=== PATIENT | male | born 1960 | race Two or more races ===

== ENCOUNTER 2022-09-30 06:57 | Day surgery (SDC) | payer OTHER ==
[2022-09-30] MEDS ORDERED: LIDOCAINE HCL/MPF 1% 30 ML VIAL IJ ONE (11:37)
[2022-09-30] MEDS ORDERED: BUPIVACAINE 0.5 % PF 150 MG/30 ML VIAL ONE (11:37)
== END 2022-09-30 12:20 | disposition home or self-care (01) ==
LOC: DS 06:57
PROVIDERS: ATTEND Student in an Organized Health Care Education/Training Program
DX: S92.516A Nondisplaced fracture of proximal phalanx of unspecified lesser toe(s), initial encounter for closed fracture (principal); Z53.8 Procedure and treatment not carried out for other reasons; X58.XXXA Exposure to other specified factors, initial encounter; Y93.89 Activity, other specified; Y92.89 Other specified places as the place of occurrence of the external cause; Y99.8 Other external cause status
CPT/HCPCS: 73130-TC; J3490